=== PATIENT | male | born 1945 | race Caucasian/White ===

== ENCOUNTER 2021-08-11 08:51 | Inpatient (IN) | payer MEDICARE, OTHER ==
[~2021-08-11] VITALS: Ht 180.3 cm; Wt 99.3 kg
[~2021-08-11 08:51] MED LIST: AUGMENTIN 875-1 EACH PO; FLONASE 0.05% N16 GM; LOTREL 10-20 M1 EACH PO; NEURONTIN600 MG PO; NEXIUM40 MG PO; NORCO 7.5-3251 EACH PO; PEPCID20 MG PO; PREDNISONE20 MG PO; SYNTHROID75 MCG PO; ZYRTEC10 MG PO
[2021-08-11 10:05] LABS: HEMOGLOBIN 13.6 gm/dl (14.0-17.5); RED BLOOD COUNT 4.4 M/UL (4.20-5.50); WHITE BLOOD COUNT 7.8 K/UL (4.5-11.0)
[2021-08-11 10:30] LABS: BUN/CREATININE RATIO 14 (0-10)
[2021-08-11] MEDS ORDERED: ESOMEPRAZOLE MA40 MG PO (13:35)
[2021-08-11] MEDS ORDERED: TRAMADOL HCL50 MG PO (13:35)
[2021-08-11] MEDS ORDERED: PAROXETINE HCL20 MG PO (13:36)
[2021-08-11] MEDS ORDERED: LEVOCETIRIZINE D5 MG PO (13:36)
[2021-08-11] MEDS ORDERED: TIZANIDINE HCL4 MG PO (13:37)
[2021-08-12 04:16] LABS: HEMOGLOBIN 13.7 gm/dl (14.0-17.5); RED BLOOD COUNT 4.45 M/UL (4.20-5.50); WHITE BLOOD COUNT 7.3 K/UL (4.5-11.0)
[2021-08-12 04:38] LABS: BUN/CREATININE RATIO 19 (0-10)
[2021-08-13 04:36] LABS: HEMOGLOBIN 13.6 gm/dl (14.0-17.5); RED BLOOD COUNT 4.49 M/UL (4.20-5.50); WHITE BLOOD COUNT 7.5 K/UL (4.5-11.0)
[2021-08-13 04:59] LABS: BUN/CREATININE RATIO 24 (0-10)
[2021-08-14 06:33] LABS: BUN/CREATININE RATIO 16 (0-10)
[2021-08-15 05:28] LABS: RED BLOOD COUNT 4.55 M/UL (4.20-5.50); WHITE BLOOD COUNT 8.8 K/UL (4.5-11.0)
[2021-08-15 05:34] LABS: BUN/CREATININE RATIO 22 (0-10)
[2021-08-16 07:22] LABS: BUN/CREATININE RATIO 20 (0-10)
[2021-08-17 04:41] LABS: HEMOGLOBIN 13.7 gm/dl (14.0-17.5); RED BLOOD COUNT 4.48 M/UL (4.20-5.50); WHITE BLOOD COUNT 7.7 K/UL (4.5-11.0)
[2021-08-17 05:15] LABS: BUN/CREATININE RATIO 24 (0-10)
[2021-08-17] MEDS ORDERED: POLYETHYLENE GL17 GM PO (16:35)
[2021-08-17] MEDS ORDERED: CLOPIDOGREL75 MG PO (16:35)
[2021-08-17] MEDS ORDERED: ATORVASTATIN CA20 MG PO (16:35)
[2021-08-17] MEDS ORDERED: BISACODYL10 MG PR (16:35)
[2021-08-17] MEDS ORDERED: STIMULANT LAXA1 EACH PO (16:35)
[2021-08-17] MEDS ORDERED: ASPIRIN EC81 MG PO (16:35)
--- NOTE | 2021-08-17 17:42 | NUR ---
REPORT CALLED TO [facility] TO [facility]
--- NOTE | 2021-08-17 20:37 | NUR ---
PATIENT'S FAMILY HERE AND REQUEST TO TAKE PATIENT HOME. PATIENT WAS EXPECTED TO DISCHARGE TODAY TO [facility]. RISK VS BENEFIT EXPLAINED TO PATIENT AND FAMILY. VERBALIZED UNDERSTANDING. ATTEMPTED TO NOTIFY . MULTIPLE [employer] HELPER BERNADINE NOTIFIED. DC INSTRUCTIONS GIVEN TO PATIENT AND FAMILY. HS MEDS ADMINISTERED PRIOR TO PATIENT LEAVING. NO DISTRESS NOTED.
== END 2021-08-17 20:40 | disposition home or self-care (01) | DRG 65 ==
LOC: ER1 08:51 → CDU 12:46 → M/S 12:46
PROVIDERS: Emergency Medicine; Internal Medicine; Physician Assistant; ADMIT Internal Medicine
PROC: B24BZZZ Ultrasonography of Heart with Aorta (ICD-10-PCS; principal; 2021-08-11)
DX: I63.9 Cerebral infarction, unspecified (principal); G81.94 Hemiplegia, unspecified affecting left nondominant side; E87.1 Hypo-osmolality and hyponatremia; Z20.822 Contact with and (suspected) exposure to COVID-19; E66.9 Obesity, unspecified; R29.707 NIHSS score 7; F41.9 Anxiety disorder, unspecified; F32.A Depression, unspecified; M25.551 Pain in right hip; I07.1 Rheumatic tricuspid insufficiency; I10 Essential (primary) hypertension; K21.9 Gastro-esophageal reflux disease without esophagitis; M54.9 Dorsalgia, unspecified; G89.4 Chronic pain syndrome; R29.810 Facial weakness; E11.9 Type 2 diabetes mellitus without complications; E78.5 Hyperlipidemia, unspecified; K59.00 Constipation, unspecified; F17.220 Nicotine dependence, chewing tobacco, uncomplicated; E03.9 Hypothyroidism, unspecified; Z79.01 Long term (current) use of anticoagulants; Z79.82 Long term (current) use of aspirin; Z98.890 Other specified postprocedural states; Z91.014 Allergy to mammalian meats; Z91.048 Other nonmedicinal substance allergy status; Z68.32 Body mass index [BMI] 32.0-32.9, adult
CPT/HCPCS: ECHO; 36415; 70450; 70496; 70498; 70551; 71045; 71046; 80048; 80053; 80061; 82550; 82553; 82962; 83036; 83735; 84484; 85025; 85027; 92526; 92610; 93005; 93306; 97110-GP-CQ; 97112; 97161; 97166; 97530; 97530-GP-CQ; 99285; Q9967; U0002